=== PATIENT | female | born 1925 | race Caucasian/White ===

== ENCOUNTER 2016-05-01 09:35 | Inpatient (IN) | payer MEDICARE, OTHER ==
[~2016-05-01] VITALS: Ht 162.6 cm; Wt 60.3 kg
[2016-05-01 12:00] VITALS: BP 161/74
[2016-05-01] MEDS ORDERED: BYSTOLIC10 MG PO (12:29)
[2016-05-01] MEDS ORDERED: ATOR40TA59 PO (12:29)
[2016-05-01] MEDS: IV 1/2 NORMAL SALINE 1,000 ML IV SCH (14:49)
[2016-05-01 15:00] VITALS: BP 147/79
[2016-05-01 15:23] LABS: BASO % 0 % (0-3); EOS % 0 % (0-3); HEMOGLOBIN 13.2 g/dL (12.0-15.5); LYMPH # 0.4 x10^3/uL (1.0-4.8); LYMPH % 4 % (24-48); MEAN CORPUSCULAR HEMOGLOBIN 28 pg (25-35); MEAN CORPUSCULAR HGB CONC 33 g/dL (31-37); MEAN CORPUSCULAR VOLUME 84 fL (79-100); MONO % 7 % (0-9); NEUT % 88 % (31-73); PLATELET COUNT 156 x10^3/uL (140-400); RED BLOOD COUNT 4.78 x10^6/uL (3.50-5.40); WHITE BLOOD COUNT 10.3 x10^3/uL (4.0-11.0)
[2016-05-01 15:44] LABS: ALBUMIN 3.4 g/dL (3.4-5.0); CALCIUM 8.7 mg/dL (8.5-10.1); GFR 52.3; POTASSIUM 4.1 mmol/L (3.5-5.1); TOTAL PROTEIN 6.7 g/dL (6.4-8.2)
--- NOTE | 2016-05-01 15:52 | PDOC ---
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 Very fit for her age. Options are either outpt palliative FOLFOX requiring port vs hospice. Prognosis likely a couple months w/o tx vs a few more months with chemo. Will return tomorrow to f/u on her decision. SONU VALENTINO DO May 01, 2016 15:52
--- NOTE | 2016-05-01 16:57 | PDOC ---
Provider Note Provider Note UROLOGY: Dr. Bangura out of town until Thursday of next week. Suggest possible nephrostomy tube by IR until I get back and then Cysto stent placement. Thanks KENDALL BANGURA DO May 01, 2016 16:56
[2016-05-01 17:00] LABS: ANISOCYTOSIS MOD; CRENATED RBC PRESENT; OVALOCYTES OCC; PLT ESTIMATE ADEQUATE (ADEQUATE); SCHISTOCYTES OCC
[2016-05-01 17:51] LABS: BILIRUBIN,URINE MODERATE (NEG); GLUCOSE,URINE NEGATIVE (NEG); NITRITE,URINE NEGATIVE (NEG); PH,URINE 5.5; PROTEIN,URINE NEGATIVE (NEG-TRACE)
[2016-05-01 18:01] LABS: BACTERIA,URINE 0 /HPF (0-FEW); SQUAMOUS EPITHELIAL CELL,UR OCC /LPF
[2016-05-01 18:02] LABS: RBC,URINE OCC /HPF (0-2)
[2016-05-01 19:00] VITALS: BP 135/75
[2016-05-01] MEDS: METOPROLOL TART IMMED RELEASE 50 MG TABLET PO SCH (20:59)
[2016-05-01] MEDS ORDERED: ATORVASTATIN CALCIUM 40 MG TABLET. PO SCH (21:00)
[2016-05-01] MEDS: HYDROCODONE/APAP 5/325MG TABLET. PO PRN (21:00)
[2016-05-01 23:41] VITALS: BP 122/61
[2016-05-02] MEDS: HYDROCODONE/APAP 5/325MG TABLET. PO PRN (03:22)
[2016-05-02] MEDS: IV 1/2 NORMAL SALINE 1,000 ML IV SCH (03:26)
[2016-05-02 03:27] VITALS: BP 115/61
--- NOTE | 2016-05-02 06:12 | CONS ---
DATE OF CONSULTATION: 05/01/2016 ONCOLOGY CONSULT NOTE REFERRING PROVIDER: Dr. Lauro Brock REASON FOR CONSULTATION: Esophageal cancer. HISTORY OF PRESENT ILLNESS: The patient is an 89-year-old female who has had abdominal pain, weight loss and nausea for at least the last month. She reports that she has not had any vomiting because she has essentially put herself on a liquid diet. She was undergoing outpatient evaluation with her PCP. I reviewed outside GI notes, endoscopy reports, CT scans, pathology and labs. On 04/14/2016, she underwent an EGD, which revealed a 15 mm esophageal ulcer, chronic gastritis. The biopsy returned consistent with invasive adenocarcinoma with signet ring features. She underwent a CT abdomen/pelvis which showed multiple hypodense lesions in the liver, too small to characterize, but possibly small cysts. Otherwise, the scan showed pelvic ascites and was otherwise unremarkable. She underwent CT chest which showed multiple tiny noncalcified pulmonary nodules throughout the right lung, possibly representing metastatic disease, too small again to characterize. On 04/30/2016, she underwent an EUS at [facility], which showed a single celiac node, no significant abnormality in the left lobe of the liver, extension of the esophageal mass through the muscularis propria. She was staged as T3 N1 Mx. She reports being admitted today because she was frustrated with outpatient evaluation. She has no specific complaints today. PAST MEDICAL HISTORY: Hypertension and hyperlipidemia. PAST SURGICAL HISTORY: Bilateral knee replacement. FAMILY HISTORY: Mom had chronic kidney disease and heart failure. Dad of colon cancer at the age of 88. She had a brother who from prostate cancer. SOCIAL HISTORY: She lives alone and is very active. She does have a daughter in the area. She previously smoked in the 1970s. ALLERGIES: No known drug allergies. CURRENT MEDICATIONS: Metoprolol, atorvastatin, Lortab, normal saline. REVIEW OF SYSTEMS: Ten point review of systems completed and unremarkable with the exception of the weight loss, back pain, abdominal pain, nausea, no vomiting with avoidance of solids. PHYSICAL EXAMINATION: VITAL SIGNS: Temperature 97.9, pulse 64, respiratory rate 18, blood pressure 161/74, 94% O2 on room air. GENERAL: She is alert and oriented and in no distress at this time. Currently, she appears to still be at healthy weight. HEENT: Extraocular muscles are intact. Sclerae are without icterus. Mucous membranes are moist. CARDIOVASCULAR: Heart is regular in rhythm and rate. LUNGS: Clear to auscultation bilaterally. ABDOMEN: Soft, nontender. There is not a massive amount of ascites seen. EXTREMITIES: No edema. NEUROLOGIC: No focal cranial deficits. IMAGING/LABORATORY DATA: Reviewed as above. CBC unremarkable. I do not recall that her outpatient CMP was significant, but her current CMP is pending. ASSESSMENT AND PLAN: The patient is an 89-year-old female with the following medical problems: 1. 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 We discussed that the signet ring features of her pathology show a very aggressive nature. It is not uncommon for esophageal cancer to present with metastatic disease. Given that there are multiple noncalcified nodules in the lungs, I do truly suspect that this is metastatic disease. These lesions are too small to be biopsied or tile picker on PET scan currently. We discussed that her options are either palliative chemotherapy, likely FOLFOX which would certainly come with some toxicity, or hospice. She is a very fit 89-year-old, however, and seems to wish to be aggressive in her care. Additionally her dad was diagnosed with colon cancer at the age off 88 like her, and tolerated FOLFOX well it seems, so she appears to be leaning towards wanting the same thing. I think probably her survival without any treatment is likely a few months. With treatment, we may extend that a few months, but I do not expect multiple years. She has not yet decided which on route she wishes to proceed. I will plan to see her tomorrow morning after she has some more time to think about this. Thank you for allowing me to participate in her care. SONU VALENTINO DO DR: Ellen JOB#: [id number] / [id number] MAXI
[2016-05-02 07:00] VITALS: BP 103/55
--- NOTE | 2016-05-02 08:09 | PDOC ---
GENERAL General: vss and afebrile. awake and alert. discussed all oncology thoughts with patient. urology out of town so no way to get stent placed. will have oncology set up followup close to home with their group and do stenting as outpatient next week. Problems: VITAL SIGNS Vital Signs: Vital Signs Date Time Temp Pulse Resp B/P Pulse Ox O2 Delivery O2 Flow Rate FiO2 05/02/16 04:22 20 91 Room Air 05/02/16 03:27 98.0 60 115/61 98.0 I & O I & O Intake and Output 05/02/16 07:00 Intake Total 50 ml Output Total 176 ml Balance -126 ml Intake Oral 50 ml Output Urine Total 175 ml Stool Total 1 ml # Voids 2 ALLERGIES Allergies: Allergies Coded Allergies Type Severity Reaction Last Updated Verified No Known Allergies Allergy Unknown 05/01/16 Yes MEDS Medications: Current Medications Medications (Trade) Dose Ordered Sig/Nubia Start Time Stop Time Status Last Admin Dose Admin Acetaminophen/ Hydrocodone Bitart (Lortab 5/325) 1 tab PRN Q4HRS PRN 05/01/16 14:00 05/02/16 03:22 1 TAB Atorvastatin Calcium (Lipitor) 40 mg HS 05/01/16 21:00 05/01/16 21:00 40 MG Metoprolol Tartrate (Lopressor) 50 mg BID 05/01/16 21:00 05/01/16 20:59 50 MG Sodium Chloride (Iv Sodium Chloride 0.45%) 1,000 ml @ 75 mls/hr [id number] 05/01/16 14:00 05/02/16 03:26 75 MLS/HR LAB Lab: Laboratory Tests Test 05/01/16 15:05 05/01/16 17:30 White Blood Count 10.3x10^3/uL (4.0-11.0) Red Blood Count 4.78x10^6/uL (3.50-5.40) Hemoglobin 13.2g/dL (12.0-15.5) Hematocrit 40.0% (36.0-47.0) Mean Corpuscular Volume 84fL (79-100) Mean Corpuscular Hemoglobin 28pg (25-35) Mean Corpuscular Hemoglobin Concent 33g/dL (31-37) Red Cell Distribution Width 13.0% (11.5-14.5) Platelet Count 156x10^3/uL (140-400) Neutrophils (%) (Auto) 88% (31-73) Lymphocytes (%) (Auto) 4% (24-48) Monocytes (%) (Auto) 7% (0-9) Eosinophils (%) (Auto) 0% (0-3) Basophils (%) (Auto) 0% (0-3) Neutrophils # (Auto) 9.1x10^3uL (1.8-7.7) Lymphocytes # (Auto) 0.4x10^3/uL (1.0-4.8) Monocytes # (Auto) 0.8x10^3/uL (0.0-1.1) Eosinophils # (Auto) 0.0x10^3/uL (0.0-0.7) Basophils # (Auto) 0.0x10^3/uL (0.0-0.2) Segmented Neutrophils % 93% (35-66) Lymphocytes % 3% (24-48) Monocytes % 4% (0-10) Platelet Estimate Adequate (ADEQUATE) Large Platelets Occ Giant Platelets Occ Anisocytosis Mod Ovalocytes Occ Crenated Cell Present Schistocytes Occ Sodium Level 135mmol/L (136-145) Potassium Level 4.1mmol/L (3.5-5.1) Chloride Level 97mmol/L (98-107) Carbon Dioxide Level 26mmol/L (21-32) Anion Gap 12 (6-14) Blood Urea Nitrogen 23mg/dL (7-20) Creatinine 1.0mg/dL (0.6-1.0) Estimated GFR (Cockcroft-Gault) 52.3 BUN/Creatinine Ratio 23 (6-20) Glucose Level 113mg/dL (70-99) Calcium Level 8.7mg/dL (8.5-10.1) Total Bilirubin 1.0mg/dL (0.2-1.0) Aspartate Amino Transf (AST/SGOT) 29U/L (15-37) Alanine Aminotransferase (ALT/SGPT) 24U/L (14-59) Alkaline Phosphatase 76U/L (46-116) Total Protein 6.7g/dL (6.4-8.2) Albumin 3.4g/dL (3.4-5.0) Albumin/Globulin Ratio 1.0 (1.0-1.7) Urine Color Yellow Urine Clarity Clear Urine pH 5.5 Urine Specific [place] >=1.030 Urine Protein Negativemg/dL (NEG-TRACE) Urine Glucose (UA) Negativemg/dL (NEG) Urine Ketones (Stick) 15mg/dL (NEG) Urine Blood Negative (NEG) Urine Nitrite Negative (NEG) Urine Bilirubin Moderate (NEG) Urine Urobilinogen Dipstick 1.0mg/dL (0.2 mg/dL) Urine Leukocyte Esterase Negative (NEG) Urine RBC Occ/HPF (0-2) Urine WBC 1-4/HPF (0-4) Urine Squamous Epithelial Cells Occ/LPF Urine Bacteria 0/HPF (0-FEW) Urine Mucus Slight/LPF AGUSTIN CHRISTIANSON MD May 02, 2016 08:09
[2016-05-02] MEDS: METOPROLOL TART IMMED RELEASE 50 MG TABLET PO SCH (08:39)
--- NOTE | 2016-05-02 09:53 | PDOC ---
Subjective: Subjective: Onc f/u- Esoph ca Pt feeling well. No abd pain. Ready for DC. Wishes to be aggressive in her care , wants f/u at our OP office. Objective: Vital Signs: Vital Signs Date Time Temp Pulse Resp B/P Pulse Ox O2 Delivery O2 Flow Rate FiO2 05/02/16 08:39 60 103/55 05/02/16 08:00 Room Air 05/02/16 07:00 97.6 18 91 97.6 Physical Exam: General: Alert, Oriented X3, Cooperative, No acute distress Psych/Mental Status: Mental status NL, Mood NL Assessment/Plan A/P: 1. 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 Relatively asymptomatic now as long as she remains on liquid diet. 2. Performance status 0 Pt wishes to be aggressive in her care, wants outpt chemo. Will set up f/u with our [place] office close to her home. Will request HER2 testing on her tumor. Planning to DC today. SONU VALENTINO DO May 02, 2016 09:53
[2016-05-02 11:00] VITALS: BP 123/69
== END 2016-05-02 12:00 | disposition home or self-care (01) | DRG 375 ==
LOC: EDSEX 11:39 → 4 NORTH 11:39
PROVIDERS: ADMIT Family Medicine; ATTEND Family Medicine
DX: C15.9 Malignant neoplasm of esophagus, unspecified (principal); R18.8 Other ascites; C78.00 Secondary malignant neoplasm of unspecified lung; Z96.653 Presence of artificial knee joint, bilateral; E78.5 Hyperlipidemia, unspecified; I10 Essential (primary) hypertension; K29.50 Unspecified chronic gastritis without bleeding; Z80.0 Family history of malignant neoplasm of digestive organs; Z82.49 Family history of ischemic heart disease and other diseases of the circulatory system; Z87.891 Personal history of nicotine dependence; Z79.899 Other long term (current) drug therapy; Z84.1 Family history of disorders of kidney and ureter
CPT/HCPCS: 36415; 80053; 81001; 85007; 85027